=== PATIENT | female | born 1995 | race Caucasian/White ===

== ENCOUNTER 2016-08-25 19:31 | Emergency (ER) | payer MEDICAID, OTHER ==
[2016-08-25 19:58] LABS: Urine Bilirubin Negative (NEGATIVE); Urine Blood Negative /ul (NEGATIVE); Urine Ketone Negative (NEGATIVE); Urine Nitrite Negative (NEGATIVE); Urine Protein Negative (NEGATIVE); Urine Urobilinogen Normal (NORMAL)
[2016-08-25 20:13] LABS: Urine Appearance Clear; Urine Bacteria 3+; Urine Color Yellow; Urine RBC None Seen /hpf (0-5); Urine WBC None Seen /hpf (0-5)
--- OUTSIDE RECORDS SUMMARY | 2016-08-25 21:45 | XMS REPORT | Continuity of Care Document ---
:1995 Author Organization [facility] ([facility]) Address [address] [place] [address] Phone [phone] Care Team Providers Name Role Phone Pablo Mota Primary Care Provider [phone] Source Comments This disclosure is being made pursuant to the Care Everywhere program, applicable federal and state laws, and may not contain all informaitonavailable regarding this patient.[facility] ([facility]) Active Allergies and Adverse Reactions No Known Allergies Current Medications Prescription Sig. Disp. Refills Start Date End Date Status MEDROXYPROGESTERONE ACETATE inject Active (DEPO-PROVERA IM) intramuscularly . Active Problems Not on file Social History Tobacco Use Types Packs/Day Years Used Date Current Every Day Smoker Cigarettes 0.25 4 Smokeless Tobacco: Never Used Last Filed Vital Signs Vital Sign Reading Time Taken Blood Pressure 122/69 03/01/2012 1:00 PM CDT Pulse 74 03/01/2012 1:00 PM CDT Temperature - - Respiratory Rate - - Height - - Weight - - Body Mass Index - - Oxygen Saturation - - Plan of Care Health Maintenance Due Date Last Done Comments Hepatitis B Vaccine (1 of 3 - Primary Series) 1994 HPV Vaccine (1 of 3 - Female/Unknown 3 Dose Series) 2005 Tdap Vaccine 2005 Meningococcal Vaccine (1 of 1) 2010 Cervical Cancer Screening 2012 Lipid Disorder Screening 2012 MMR Vaccine 2012 Td Vaccine 2012 Varicella Vaccine (1 of 2 - Adult - No Evidence of 2012 Immunity) Pneumococcal Vaccine (1 of 1 - PPSV23) 2013 Influenza Vaccine: Seasonal (#1) 12/24/2015 Results from Last 3 Months Not on file
--- NOTE | 2016-08-25 21:49 | ERNOTE ---
Abdominal HPI - General Chief Complaint: Abdominal Pain Time Seen by Provider: 08/25/16 21:40 Source: patient Exam Limitations: no limitations - Immun/Allergies/Home Medications Immunizatons: IMMUNIZATION HX Immunizations Up to Date Yes History of Influenza Vaccine Yes Allergies/Adverse Reactions: Allergies tuberculin,PPD,multi-puncture [From Tuberculin PPD Alice Test] Adverse Reaction ( Intermediate, Verified 10/29/15 20:29) rash Home Medications: HOME MEDICATIONS NK [No Home Medication] 10/29/15 [Last Taken Unknown] - History of Present Illness Narrative: Pt had a "energy shot" earlier today and 3-4 hours later experienced a burning sensation in her epigastrium without any reflux type symptoms. she did not take anything for the pain but it has spontaneously resolved in the ED Timing: gone now Quality: moderate, burning Activities at Onset: none Associated Symptoms: Present: denies symptoms Prior Abdominal Problems: Present: none Review of Systems - Review of Systems Constitutional: Present: no symptoms reported EYE: Present: no symptoms reported ENT: Present: no symptoms reported Respiratory: Present: no symptoms reported Cardiology: Present: no symptoms reported Gastrointestinal/Abdominal: Absent: nausea, diarrhea Genitourinary: Present: no symptoms reported Musculoskeletal: Present: no symptoms reported Skin: Present: no symptoms reported Neurological: Present: no symptoms reported Endocrine: Present: no symptoms reported Hematologic/Lymphatic: Present: no symptoms reported Psych: Present: no symptoms reported - Patient's Past Medical History Patient History - Medical: No pertinent hx Patient History - Cardiac/Respiratory: No pertinent hx Patient History - Cancer: Cervical Patient History - Surgical Procedures: No surgical history Patient History - Other: None LMP (females 10-50): other - Social History Living Situations: significant other Abuse History: No History of abuse Psych History: No pertinent hx Smoking Status: Current every day smoker Have you smoked in the past 12 months: Yes Alcohol Use: none Drug Use: marijuana - Immunizations Immunizations Up to Date: Yes History of Influenza Vaccine: Yes Physical Exam - Physical Exam General Appearance: Present: wd/wn, alert, no apparent distress Eye Exam: Normal inspection: bilateral Ears, Nose, Throat: Present: normal ENT inspection Neck: Present: normal inspection, nontender Respiratory: Present: no respiratory distress Cardiovascular/Chest: Present: regular rate, rhythm Gastrointestinal/Abdominal: Present: normal bowel sounds, tenderness - mild in the epigastrium. Absent: guarding, rebound, mass Back Exam: Present: normal inspection, normal range of motion Extremity Exam: Present: normal inspection Neurological Exam: Present: alert, oriented, normal mood/affect Skin Exam: Present: normal color, warm/dry ED Progress - Results and Orders Patient's Lab Results:: I have reviewed the patient's lab results. Results and Orders: Laboratory Tests 08/25/16 19:50 Urine Color Yellow Urine Appearance Clear Urine pH 7.0 Ur Specific [place] 1.020 Urine Protein Negative Urine Glucose (UA) Negative Urine Ketones Negative Urine Blood Negative Urine Nitrate Negative Urine Bilirubin Negative Urine Urobilinogen Normal Ur Leukocyte Esterase Negative Urine RBC None seen Urine WBC None seen Ur Epithelial Cells 0-5 Urine Bacteria 3+ H Urine Culture Comments No culture indicated - Vital Signs Patient's Vital Signs:: I have reviewed the patient's vital signs. Vital Signs: Vital Signs 08/25/16 08/25/16 19:40 21:11 Temperature 37.7 C H Pulse Rate 114 H 88 Respiratory 14 14 Rate Blood Pressure 142/94 131/73 O2 Sat by Pulse 99 98 Oximetry - Progress/Reassessment Chief Complaint: Abdominal Pain Progress Note-Subjective: 08/25/16 21:46 offered basic labs and patient declined any lab work. I suggested OTC antacids if the symptoms return. Departure - Departure Clinical Impression: Heartburn Disposition: Home self-care Condition: Good Instructions: Indigestion, Ivzy-ko-Wyro Additional Instructions: See Dr. Barlow if symptoms return and are not resolved by tums Referrals: Oumar Diaz MD [Primary Care Provider] -
[2016-08-26 00:14] VITALS: BP 140/88
== END 2016-08-25 21:53 | disposition home or self-care (01) ==
LOC: ER 19:31
DX: R12 Heartburn (principal); F17.200 Nicotine dependence, unspecified, uncomplicated